=== PATIENT | male | born 1955 | race Hispanic/Latino ===

== ENCOUNTER → 2022-02-24 | Outpatient (CLI) | payer SELFPAY | END | disposition home or self-care (01) | LOC: DAH 10:00 → EDSTATUS 03-01 12:30 | PROVIDERS: ATTEND Internal Medicine Gastroenterology | DX: Z01.812 Encounter for preprocedural laboratory examination (principal); Z93.2 Ileostomy status; Z20.822 Contact with and (suspected) exposure to COVID-19 | CPT/HCPCS: 87426 ==